=== PATIENT | female | born 1990 | race Caucasian/White ===

== ENCOUNTER 2020-08-20 15:50 | Inpatient (IN) | payer SELFPAY ==
[~2020-08-20] VITALS: Ht 165.1 cm; Wt 52.2 kg
[2020-08-20 15:57] VITALS: Ht 165.1 cm; Wt 52.2 kg
[2020-08-20 17:49] LABS: BASOPHIL % 0.2 % (0-2); PLATELET COUNT 245 x10^3mcL (130-400); RED CELL DISTRIBUTION WIDTH 12.4 % (11.5-14.5)
[2020-08-20 17:54] LABS: CALCIUM 8.8 mg/dL (8.5-10.1); CHLORIDE SERUM 103 mmol/L (98-107); CREATININE SERUM 0.9 mg/dL (0.6-1.0); GFR1 > 60 mL/min; GLUCOSE SERUM 101 mg/dL (74-106); POTASSIUM SERUM 3.4 mmol/L (3.5-5.1); SODIUM SERUM 140 mmol/L (136-145)
[2020-08-20 18:04] LABS: ALBUMIN 3.8 g/dL (3.4-5.0); ALKALINE PHOSPHATASE 49 U/L (46-116); AMYLASE 58 U/L (25-115); AST/SGOT 20 U/L (15-37); LIPASE 130 IU/L (73-393); TOTAL PROTEIN, SERUM 7.3 g/dL (6.4-8.2)
[2020-08-20 18:17] LABS: ALT/SGPT 21 U/L (14-59)
[2020-08-20 23:28] VITALS: BP 106/58
[2020-08-21 05:36] VITALS: BP 151/66
[2020-08-21 07:40] LABS: BASOPHIL % 0.2 % (0-2); PLATELET COUNT 232 x10^3mcL (130-400); RED CELL DISTRIBUTION WIDTH 12.5 % (11.5-14.5)
[2020-08-21 07:42] LABS: CALCIUM 8.5 mg/dL (8.5-10.1); CARBON DIOXIDE 23.3 mmol/L (21-32); CHLORIDE SERUM 103 mmol/L (98-107); CREATININE SERUM 0.8 mg/dL (0.6-1.0); GFR1 > 60 mL/min; GLUCOSE SERUM 85 mg/dL (74-106); MAGNESIUM 1.9 mg/dL (1.8-2.4); PHOSPHOROUS 4.3 mg/dL (2.5-4.9); SODIUM SERUM 138 mmol/L (136-145)
[2020-08-21 08:02] VITALS: BP 100/60
[2020-08-21 12:26] VITALS: BP 104/84
[2020-08-21 16:05] VITALS: BP 91/47
[2020-08-21 16:47] VITALS: BP 91/47
== END 2020-08-21 19:10 | disposition home or self-care (01) | DRG 743 ==
LOC: ED 15:50 → MU 18:58
PROVIDERS: Emergency Medicine; Obstetrics & Gynecology; ADMIT Family Medicine; ATTEND Family Medicine
PROC: 0UT14ZZ Resection of Left Ovary, Percutaneous Endoscopic Approach (ICD-10-PCS; 2020-08-21)
PROC: 0UT64ZZ Resection of Left Fallopian Tube, Percutaneous Endoscopic Approach (ICD-10-PCS; principal; 2020-08-21 13:00)
DX: N83.202 Unspecified ovarian cyst, left side (principal); N83.53 Torsion of ovary, ovarian pedicle and fallopian tube; N70.93 Salpingitis and oophoritis, unspecified; E87.6 Hypokalemia; Z20.828 Contact with and (suspected) exposure to other viral communicable diseases
CPT/HCPCS: G0378; J0131; J1170; J1885; J2001; J2250; J2270; J2405; J3010; J3490; J7030